=== PATIENT | female | born 2005 | race Caucasian/White ===

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

== ENCOUNTER 2023-01-15 20:14 | Emergency (ER) | payer MEDICAID, SELFPAY ==
[2023-01-15 20:19] VITALS: BP 129/83; PULSE 85; RESP 16; TEMP 36.7; O2SAT 96; BMI 31.8
[2023-01-15] MEDS: predniSONE 20 mg Tablet 40 MG PO (20:59)
[2023-01-15] MEDS: naproxen 500 mg Tablet PO (20:59)
[2023-01-15] MEDS: tizanidine 4 mg Tablet PO (20:59)
--- NOTE | 2023-01-15 21:08 | W.ED.GENADLT ---
HPI - General Adult General: Chief complaint: General Medical Stated complaint: hurt nose Time Seen by Provider: 01/15/23 20:19 Source: patient Mode of arrival: ambulatory Limitations: no limitations History of Present Illness: Patient presents emergency department today for evaluation treatment of nasal injury. Patient states a couple of days ago her 1-1/2-year-old accidentally head butted her in the nose. Patient reports injury was directly to the nose rather than up from underneath. She says she has had some bleeding off and on since then. She also states she is tender and sore at the bridge extending underneath the eyes. Patient states it happened again just prior to arrival. She states she thinks she heard a crack . Review of Systems General: Reports: 10 or more systems reviewed and unremarkable except in HPI and below PFS ED PFSH: Medical History Allergic rhinitis due to allergen Attention deficit hyperactivity disorder (ADHD) summary November 2018: based on scores on the Ken scales rated by teacher and parent I treated her for ADD with a trial of guanfacine which was discontinued and then with Concerta during the year 2013. Then she was off medications until she resumed medication from [facility] April 2016 through 2016. She has again been off medications and would be interested in resuming medication for her first year of high school at [employer]. Eighth grade was at [employer], and before that she was in [employer] school. trial of Focalin XR 10 mg December 2018. Increased to 15 mg January 2019. Kendy had some impression of benefit and we decided to make another increased to 20 mg February 2019. June 2019 increased to 25 mg every morning with good impression August 2019. Nausea vomiting and diarrhea No pertinent past medical history neghx: htn,dm,dvt/pe PCP: In search of PCP Subclinical hypothyroidism 01/2019:TSH 5.6 repeat Free T4 and TSH normal August 2020. Plan yearly repeat. Could repeat antithyroid antibodies at some point. Viral syndrome Surgical History No pertinent past surgical history Family History Family/Other Stroke uncle/maternal Breast cancer aunt/maternal Denies family history of Colon cancer Ovarian cancer Diabetes Hyperlipidemia Hypertension Uterine cancer Social History Substance/Drug Use: never Physical Exam Const: COMMON NORMALS: no acute distress, patient oriented x3 and alert HENMT: OTHER: No signs of septal hematoma. No signs of gross deformity of the nose. No obvious swelling or bruising. No raccoon eyes. No signs of current or recent epistaxis. Posterior pharynx is clear of any signs of blood. Eye: COMMON NORMALS: Equal, round and reactive pupils present, EOMs intact bilaterally and conjunctivae normal CONJUNCTIVA: Yes conjunctivae normal PUPIL: Yes Equal, round and reactive pupils present Neck/C-Spine: COMMON NORMALS: no JVD Lymph: LYMPHATIC: no lymphadenopathy noted Resp: COMMON NORMALS: normal respiratory effort, No retractions and No use of accessory muscles Cardio: COMMON NORMALS: no JVD and regular rate RATE: regular rate : COMMON NORMALS: Yes no CVA tenderness BLADDER/KIDNEY EXAM: Yes no CVA tenderness Back/Pelvis: COMMON NORMALS: no CVA tenderness, thoracic and lumbar spine normal to inspection and thoraco-lumbar ROM normal Extremity: COMMON NORMALS: normal to inspection, full ROM and no pedal edema Neuro: COMMON NORMALS: patient oriented x3 SENSORIUM/ORIENTATION: Yes alert Skin: COMMON NORMALS: no rashes or lesions noted and turgor normal GENERAL SKIN EXAM: no rashes or lesions noted and turgor normal Course Vital Signs: Vital signs: Vital Signs Temperature 98.0 F 01/15/23 20:19 Pulse Rate 85 01/15/23 20:19 Respiratory Rate 16 01/15/23 20:19 Blood Pressure 129/83 01/15/23 20:19 Pulse Oximetry 96 01/15/23 20:19 [facility] - General Adult Medical Decision Making Patient has no signs of septal hematoma warranting emergency intervention. I see no signs of gross deformity and there is no signs of any anterior posterior bleeding. Patient has no signs of raccoon eyes. Patient was given recommendations for [id number] therapies and, medications prescribed to help with pain and inflammation. I encouraged her to have a follow-up appointment with her primary care doctor in approximately 1 to 2 weeks to discuss any residual difficulties with breathing or recurrent nosebleeds as she may warrant referral to ENT at that time. Differential Diagnosis DDx: Nasal contusion, nasal fracture, septal hematoma, traumatic epistaxis Discharge Plan Discharge Patient Disposition: Home Clinical Impression: Contusion of nose, initial encounter Condition: Stable Prescriptions: New naproxen 500 mg tablet 500 mg PO BID PRN (Reason: pain) Qty: 20 0RF tizanidine 4 mg tablet 4 mg PO Q8H PRN (Reason: muscle spasticity) Qty: 21 0RF prednisone 20 mg tablet 20 mg PO BID 5 Days Qty: 10 0RF Discharge Orders: Discharge ED (Routine); Ordered 01/15/23 Ordered By: Margo Flores Referrals: Maxine Johnson MD [Primary Care Provider] - Discharge Diet: Usual diet Discharge Activity: Increase activity as tolerated Patient Instructions: Nasal Contusion (ED) Activity Restrictions/Additional Instructions: Evaluation today shows no signs of a septal hematoma. As we discussed this is an emergency where blood fills the nasal septal region and requires immediate intervention. Still, nasal injuries create quite a bit of swelling. I am providing use medication to help with pain and swelling but, you can still use [id number] Flonase as the steroid can help with inflammation of the nasal passages. You may also wish to use nasal saline spray to keep the nasal passages moist to prevent nosebleeds. Follow-up with your primary care doctor in 1 to 2 weeks for reexamination as you may need to be referred on to ENT if symptoms of swelling and occlusion do not improve. Coding Level of Care Code ED Security Services Specialist for Roro Young
== END 2023-01-15 21:09 | disposition home or self-care (01) ==
PROVIDERS: Emergency Provider Physician Assistant; PCP Pediatrics Adolescent Medicine
DX: S00.33XA Contusion of nose, initial encounter (principal); W50.0XXA Accidental hit or strike by another person, initial encounter
CPT/HCPCS: 99283; J7512